=== PATIENT | male | born 1965 | race Caucasian/White ===

== ENCOUNTER 2019-03-10 23:53 | Emergency (ER) | payer SELFPAY ==
[~2019-03-10] VITALS: Ht 175.3 cm; Wt 106.6 kg
[2019-03-11 00:33] VITALS: Ht 175.3 cm; Wt 106.6 kg
[2019-03-11 02:27] VITALS: BP 142/82
== END 2019-03-11 02:28 | disposition home or self-care (01) ==
LOC: ED 23:53
DX: S16.1XXA Strain of muscle, fascia and tendon at neck level, initial encounter (principal); V49.9XXA Car occupant (driver) (passenger) injured in unspecified traffic accident, initial encounter; Y93.I9 Activity, other involving external motion; Y92.413 State road as the place of occurrence of the external cause; Y99.8 Other external cause status